=== PATIENT | female | born 1940 | race African-American/Black ===

== ENCOUNTER 2023-03-07 08:10 | Emergency (ER) | payer MEDICARE ==
[~2023-03-07] VITALS: Ht 160 cm; Wt 63.5 kg
[2023-03-07 08:22] VITALS: O2SAT 97
[2023-03-07 09:45] VITALS: TEMP 98.2
[2023-03-07] MEDS ORDERED: BACITRACIN ZINC OINT UDPKT TOP ONE (09:45)
[2023-03-07] MEDS ORDERED: ACETAMINOPHEN 325MG TABLET PO ONE (09:45)
[2023-03-07] MEDS ORDERED: TETANUS, DIPHTHERIA, PERTUSSIS VAC/PF 0.5ML (>10YR OLD) IM ONE (09:45)
[2023-03-07] MEDS ORDERED: AMLODIPINE 10MG TABLET PO ONE (11:15)
[2023-03-07 11:19] VITALS: BP 240/102; PULSE 69; RESP 16
[2023-03-07 11:56] LABS: BASOPHILS % 0.6 % (0.0-2.0); EOSINOPHILS % 0.4 % (0.0-5.0); HEMATOCRIT. 35.7 % (36.0-48.0); HEMOGLOBIN. 11.8 g/dL (12.0-16.0); LYMPHOCYTES % 12.1 % (20.0-50.0); MEAN CORPUSCULAR HEMOGLOBIN 28.3 pg (28.0-32.0); MEAN CORPUSCULAR VOLUME 85.4 fL (81.0-99.0); MEAN PLATELET VOLUME 9.4 fl (7.4-10.4); MONOCYTES % 7.1 % (2.0-8.0); NEUTROPHILS % 79.8 % (40.0-76.0); PLATELET 183 x1000/uL (130-400); RED BLOOD CELL COUNT 4.19 mill/uL (4.2-5.4); RED CELL DISTRIBUTION WIDTH 14.8 % (11.6-14.6)
[2023-03-07] MEDS ORDERED: AMLODIPINE 5MG TABLET PO NR (12:04)
[2023-03-07 12:06] LABS: CHLORIDE 110 mEq/L (98-107)
[2023-03-07] MEDS ORDERED: ASPIRIN 81MG TABLET PO ONE (12:30)
== END 2023-03-07 13:18 | disposition left against medical advice (07) ==
LOC: ER 08:35
DX: S63.105A Unspecified dislocation of left thumb, initial encounter (principal); S01.511A Laceration without foreign body of lip, initial encounter; I21.3 ST elevation (STEMI) myocardial infarction of unspecified site; I10 Essential (primary) hypertension; Z53.21 Procedure and treatment not carried out due to patient leaving prior to being seen by health care provider; W18.09XA Striking against other object with subsequent fall, initial encounter; Y93.01 Activity, walking, marching and hiking; Y92.89 Other specified places as the place of occurrence of the external cause; Y99.8 Other external cause status
CPT/HCPCS: 26770; 36415; 70486; 73140; 80053; 84484; 85025; 90471; 90715; 93005; 99291